=== PATIENT | female | born 1985 | race African-American/Black ===

== ENCOUNTER 2021-08-08 18:59 | Emergency (ER) | payer OTHER, SELFPAY ==
[2021-08-08 21:57] VITALS: BP 131/82; PULSE 74; RESP 16; TEMP 36.9; O2SAT 99; BMI 28.8
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
[2021-08-08] MEDS: Ibuprofen 600 MG TABLET PO (23:46)
[2021-08-08] MEDS: Cyclobenzaprine HCl 10 MG TABLET PO (23:46)
== END 2021-08-08 23:53 | disposition home or self-care (01) ==
PROVIDERS: Emergency Provider Emergency Medicine; PCP Internal Medicine
DX: S46.912A Strain of unspecified muscle, fascia and tendon at shoulder and upper arm level, left arm, initial encounter (principal); M25.512 Pain in left shoulder; V43.52XA Car driver injured in collision with other type car in traffic accident, initial encounter; Y93.9 Activity, unspecified; Y92.410 Unspecified street and highway as the place of occurrence of the external cause; Y99.9 Unspecified external cause status; Z79.899 Other long term (current) drug therapy
CPT/HCPCS: 99283; 99284

== ENCOUNTER 2021-09-11 18:01 | Emergency (ER) | payer OTHER, SELFPAY ==
--- NOTE | ~2021-09-11 | XR_ITS ---
EXAMINATION: XR CHEST CLINICAL INFORMATION: Cough COMPARISON: 10/30/2008, report only TECHNIQUE: Frontal view of the chest was obtained. FINDINGS: No significant abnormality is noted involving the heart, lungs, mediastinum, bony thorax or soft tissues. XR/XR chest 1V IMPRESSION: Unremarkable examination.
[2021-09-11 18:14] VITALS: BP 106/71; PULSE 117; RESP 18; TEMP 37.2; O2SAT 98; BMI 28.9
[2021-09-11 18:40] LABS: COVID-19 Test Negative (Negative); IDNOW Serial# 16C4AD1C
== END 2021-09-11 21:20 | disposition left against medical advice (07) ==
LOC: HO.ED 21:12
PROVIDERS: Emergency Provider Emergency Medicine; PCP Internal Medicine
DX: R05.9 Cough, unspecified (principal); R07.9 Chest pain, unspecified; R11.0 Nausea; Z20.822 Contact with and (suspected) exposure to COVID-19
CPT/HCPCS: 71045; 87635; 99283

== ENCOUNTER 2021-09-28 05:28 | Emergency (ER) | payer OTHER, SELFPAY ==
--- NOTE | ~2021-09-28 | US_ITS ---
EXAMINATION: US ABDOMEN LIMITED CLINICAL INFORMATION: Right upper quadrant pain. COMPARISON: None TECHNIQUE: Real-time imaging of the right upper quadrant abdominal viscera. FINDINGS: PANCREAS: Visualized portions unremarkable. LIVER: Unremarkable. GALLBLADDER: Mildly distended with multiple polyps. A floor representative follow-up along the superficial wall measures up to 0.5 cm. Probable mild dependent sludge and gallstones. No significant mural thickening or pericholecystic fluid. COMMON BILE DUCT: Normal in caliber measuring 0.4 cm in diameter. No intraluminal abnormality. RIGHT KIDNEY: 11.0 cm. Unremarkable. FREE FLUID: None. US/US abdomen limited IMPRESSION: 1. Probable multiple gallbladder polyps measuring up to 0.5 cm as well as intraluminal sludge and small gallstones. No evidence for acute cholecystitis. Given the multiple abnormalities, a short-term repeat right upper quadrant ultrasound should be considered in 6 months or sooner if clinically indicated.
[2021-09-28 05:34] VITALS: BP 117/83; PULSE 102; RESP 16; TEMP 36.8; O2SAT 98; BMI 28.3
[2021-09-28 05:49] LABS: Eosinophils Percent Auto 0.6 % (0-4); Hematocrit 37.1 % (37.0-47.0); Hemoglobin 12.6 g/dl (12.0-16.0); Imm Gran Abs Auto 0.01 X10*3/uL (0.00-0.03); Imm Gran Pct Auto 0.3 % (0.0-0.4); Lymphocytes Absolute Auto 0.6 X10*3/uL (1.2-4.9); Lymphocytes Percent Auto 16.2 % (20-40); MANUAL DIFF FLAG NO; Mean Corpuscular Hemoglobin 30.1 pg (27.0-33.0); Mean Corpuscular Volume 88.5 fL (80.0-98.0); Mean Platelet Volume 9.3 fL (9.4-12.3); Monocytes Absolute Auto 0.3 X10*3/uL (0.1-1.2); Monocytes Percent Auto 7.5 % (2-11); Neutrophils Absolute Auto 2.6 x10*3/uL (2.0-8.3); Neutrophils Percent Auto 75.4 % (45-73); Platelet Count 225 X10*3/uL (160-400); Red Blood Count 4.19 X10*6/uL (4.20-5.50); Red Cell Distribution Width 12.5 % (11.0-16.0); White Blood Count 3.5 X10*3/uL (4.8-10.8)
[2021-09-28 06:06] LABS: IDNOW Serial# 9DB6401D; Influenza A Negative (Negative); Influenza B2 Negative (Negative)
[2021-09-28 06:07] LABS: COVID-19 Test Negative (Negative); IDNOW Serial# 16C4AD1C
[2021-09-28 06:09] LABS: Alanine Aminotransferase 46 U/L (0-31); Alkaline Phosphatase 84 U/L (39-117); Anion Gap 14 (12-20); Aspartate Amino Transferase 45 U/L (5-31); Bilirubin Direct 0.3 mg/dL (0.0-0.5); Bilirubin Total 0.7 mg/dL (0.0-1.0); Blood Urea Nitrogen 13 mg/dL (9-16); Calcium 8.8 mg/dL (8.4-10.2); Carbon Dioxide 24 mmol/L (22-29); Chloride 104 mmol/L (96-108); Estimated Glomerular Filt Rate > 60; Glucose Random 109 mg/dL (60-115); Lipase 18 U/L (8-78); Potassium 3.7 mmol/L (3.3-5.1); Sodium 138 mmol/L (135-145); Total Protein 7.8 g/dL (6.5-8.0)
[2021-09-28 06:47] VITALS: BP 106/70; PULSE 85; RESP 14; TEMP 37.2; O2SAT 97
--- NOTE | 2021-09-28 07:29 | ED_ITS ---
HPI - Nausea/Vomiting/Diarrhea General Chief complaint: Nausea/Vomiting/Diarrhea Stated complaint: dehydrated, weakness, n/v/d, dry heaving Time Seen by Provider: 09/28/21 07:29 Source: patient Mode of arrival: ambulatory Limitations: no limitations History of Present Illness MD elicited complaint: nausea and vomiting Pertinent past history: other ( stomach issues ) Onset (ago): week(s) (1) Description of vomiting: food contents and watery Description of diarrhea: watery Associated nausea: Yes Associated abdominal pain: No Location of pain: none Radiation: diffuse Severity: moderate Quality: aching Exacerbating factors: eating Relieving factors: none Associated symptoms: headaches, loss of appetite, malaise and nausea/vomiting Related Data Previous Rx's Medication Instructions Recorded cyclobenzaprine 10 mg tablet 10 mg PO TID PRN muscle spasm #15 08/08/21 tabs ibuprofen 600 mg tablet 600 mg PO Q6H PRN pain #30 tabs 08/08/21 omeprazole 20 mg capsule,delayed 20 mg PO DAILY 14 days #14 caps 09/28/21 release ondansetron 4 mg disintegrating 4 mg PO Q8H PRN nausea and 09/28/21 tablet vomiting #20 tabs Allergies Allergy/AdvReac Type Severity Reaction Status Date / Time acetaminophen [From Vicodin] AdvReac Intermediate Vomiting Verified 09/11/21 18:14 hydrocodone [From Vicodin] AdvReac Intermediate Vomiting Verified 09/11/21 18:14 sertraline [From Zoloft] AdvReac Intermediate Vomiting Verified 09/11/21 18:14 Review of Systems Review of Systems: Constitutional : No Weight loss, No Fever, No Chills ENT/Mouth : No sore throat, No Rhinorrhea Eyes: No Swelling, No Redness Cardiovascular : No Chest Pain, No SOB, NoEdema Respiratory : No Cough, No Sputum, No Wheezing Gastrointestinal : Positive Nausea, Positive Vomiting, no Diarrhea, no abdominal Pain, No Hematochezia, No Melena Genitourinary : No Dysuria, No Urinary Frequency, No Hematuria, No Urgency Musculoskeletal : No joint pain, No Myalgias, No Joint Swelling Skin : No Skin Lesions, No rash Neuro : pos Weakness, No Numbness, No Dizziness, pos Headache Psych : No Anxiety/Panic, No Depression Heme/Lymph: No Bruising, No Lymphadenopathy Endocrine : No Polyuria, No Polydipsia All other systems reviewed and are negative. Gastrointestinal: Gastrointestinal: Reports nausea PMFSH Past Medical History Attestation statement: The following information was validated with the patient. Medical History (Updated 09/28/21 @ 11:05 by Joan Jones DO) Hypothyroidism Surgical History (Updated 09/28/21 @ 08:05 by Joan Jones DO) H/O section Social History Social History Alcohol intake: never Patient Tobacco Use Status: Never used Tobacco Use of substances other than those prescribed or required for medical reasons: No Advance Directives: No Patient : No Physical Exam Vital Signs: Vital Signs: Last Vital Signs Temp 99.0 F 09/28/21 06:47 Pulse 85 09/28/21 06:47 Resp 14 09/28/21 06:47 BP 106/70 09/28/21 06:47 Pulse Ox 97 09/28/21 06:47 O2 Del Method 09/28/21 06:47 BMI result Body Mass Index 28.3 Appearance: Alert. Oriented X3. No acute distress. Eyes: Pupils equal, round and reactive to light. ENT: Pharynx normal. Neck: Normal inspection. Neck supple. CVS: Normal heart rate and rhythm. Pulses normal. Respiratory: No respiratory distress. Breath sounds normal. Abdomen: Soft and mild epigastric ttp no rebound or guarding Skin: Skin warm and dry. Normal skin color. Normal skin turgor. Extremities: No lower extremity edema. No calf ttp Neuro: Oriented X 3. No motor deficit. No sensory deficit. Course Course Course Narrative: no signs of cholecystitis, bili normal no WBC count able to tolerate PO no RUQ pain will place on low fat diet and refer to surgery as outpatient MDM - Nausea/Vomiting/Diarrhea MDM Narrative Medical decision making narrative: 36 yo female with no sig PMH here with c/o vomiting for 1 week everytime she eats denies known exposures or sick contacts, does not smoke THC. at this time will need labs, UPT, UA, US of GB to r/o cholecystitis. IVF and IV medications to treatment nausea and vomiting. Dispo per results and findings. Lab Data Result diagrams: 09/28/21 05:45 09/28/21 05:45 Labs: Lab Results 09/28/21 09/28/2109/28/22 Range/Units 05:45 05:45 05:45 WBC 3.5 L (4.8-10.8) X10*3/uL RBC 4.19 L (4.20-5.50) X10*6/uL Hgb 12.6 (12.0-16.0) g/dl Hct 37.1 (37.0-47.0) % MCV 88.5 (80.0-98.0) fL MCH 30.1 (27.0-33.0) pg MCHC 34.0 (31.0-35.0) g/dl RDW 12.5 (11.0-16.0) % Plt Count 225 (160-400) X10*3/uL MPV 9.3 L (9.4-12.3) fL Immature Gran % (Auto) 0.3 (0.0-0.4) % Neut % (Auto) 75.4 H (45-73) % Lymph % (Auto) 16.2 L (20-40) % [place] % (Auto) 7.5 (2-11) % Eos % (Auto) 0.6 (0-4) % Baso % (Auto) 0.0 (0-2) % Lymph # (Auto) 0.6 L (1.2-4.9) X10*3/uL [place] # (Auto) 0.3 (0.1-1.2) X10*3/uL Eos # (Auto) 0.0 (0.0-0.4) X10*3/uL Baso # (Auto) 0.0 (0.0-0.2) X10*3/uL Abs Immat Gran (auto) 0.01 (0.00-0.03) X10*3/uL Absolute Neuts (auto) 2.6 (2.0-8.3) x10*3/uL Absolute Nucleated RBC 0.000 (0.0-0.012) X10*3/uL Nucleated RBC % (auto) 0.0 (0.0-0.2) /100WBC Sodium 138 (135-145) mmol/L Potassium 3.7 (3.3-5.1) mmol/L Chloride 104 (96-108) mmol/L Carbon Dioxide 24 (22-29) mmol/L Anion Gap 14 (12-20) BUN 13 (9-16) mg/dL Creatinine 0.74 (0.5-1.4) mg/dL Estim Creat Clear Calc 104.0 Estimated GFR > 60 Random Glucose 109 (60-115) mg/dL Calcium 8.8 (8.4-10.2) mg/dL Total Bilirubin 0.7 (0.0-1.0) mg/dL Direct Bilirubin 0.3 (0.0-0.5) mg/dL AST 45 H (5-31) U/L ALT 46 H (0-31) U/L Alkaline Phosphatase 84 (39-117) U/L Total Protein 7.8 (6.5-8.0) g/dL Albumin 4.0 (3.5-5.0) g/dL Lipase 18 (8-78) U/L Urine Color Urine Appearance Urine pH (5.0-8.0) Ur Specific [place] (1.005-1.025) Urine Protein (NEG-TRACE) MG/DL Urine Glucose (UA) (NEG) MG/DL Urine Ketones (NEG) MG/DL Urine Blood (NEG) Urine Nitrite (NEG) Ur Leukocyte Esterase (NEG) Urine Test (NEGATIVE) Urine Opiates Screen (Not Detect) Urine Fentanyl Screen (Not Detect) Ur Barbiturates Screen (Not Detect) Ur Phencyclidine Scrn (Not Detect) Ur Amphetamines Screen (Not Detect) U Benzodiazepines Scrn (Not Detect) Urine Cocaine Screen (Not Detect) U Marijuana (THC) Screen (Not Detect) COVID-19 (YORDAN) (Negative) COVID-19 Clin Com Influenza Type A (DAI) Negative (Negative) Influenza Type B (DAI) Negative (Negative) Influenza A & B Note See Note 09/28/21 09/28/21 09/28/21 Range/Units 05:45 10:35 10:35 WBC (4.8-10.8) X10*3/uL RBC (4.20-5.50) X10*6/uL Hgb (12.0-16.0) g/dl Hct (37.0-47.0) % MCV (80.0-98.0) fL MCH (27.0-33.0) pg MCHC (31.0-35.0) g/dl RDW (11.0-16.0) % Plt Count (160-400) X10*3/uL MPV (9.4-12.3) fL Immature Gran % (Auto) (0.0-0.4) % Neut % (Auto) (45-73) % Lymph % (Auto) (20-40) % [place] % (Auto) (2-11) % Eos % (Auto) (0-4) % Baso % (Auto) (0-2) % Lymph # (Auto) (1.2-4.9) X10*3/uL [place] # (Auto) (0.1-1.2) X10*3/uL Eos # (Auto) (0.0-0.4) X10*3/uL Baso # (Auto) (0.0-0.2) X10*3/uL Abs Immat Gran (auto) (0.00-0.03) X10*3/uL Absolute Neuts (auto) (2.0-8.3) x10*3/uL Absolute Nucleated RBC (0.0-0.012) X10*3/uL Nucleated RBC % (auto) (0.0-0.2) /100WBC Sodium (135-145) mmol/L Potassium (3.3-5.1) mmol/L Chloride (96-108) mmol/L Carbon Dioxide (22-29) mmol/L Anion Gap (12-20) BUN (9-16) mg/dL Creatinine (0.5-1.4) mg/dL Estim Creat Clear Calc Estimated GFR Random Glucose (60-115) mg/dL Calcium (8.4-10.2) mg/dL Total Bilirubin (0.0-1.0) mg/dL Direct Bilirubin (0.0-0.5) mg/dL AST (5-31) U/L ALT (0-31) U/L Alkaline Phosphatase (39-117) U/L Total Protein (6.5-8.0) g/dL Albumin (3.5-5.0) g/dL Lipase (8-78) U/L Urine Color YELLOW Urine Appearance HAZY Urine pH 7.0 (5.0-8.0) Ur Specific [place] 1.010 (1.005-1.025) Urine Protein TRACE (NEG-TRACE) MG/DL Urine Glucose (UA) NEG (NEG) MG/DL Urine Ketones 40 (NEG) MG/DL Urine Blood NEG (NEG) Urine Nitrite NEG (NEG) Ur Leukocyte Esterase NEG (NEG) Urine Test NEGATIVE (NEGATIVE) Urine Opiates Screen (Not Detect) Urine Fentanyl Screen (Not Detect) Ur Barbiturates Screen (Not Detect) Ur Phencyclidine Scrn (Not Detect) Ur Amphetamines Screen (Not Detect) U Benzodiazepines Scrn (Not Detect) Urine Cocaine Screen (Not Detect) U Marijuana (THC) Screen (Not Detect) COVID-19 (YORDAN) Negative (Negative) COVID-19 Clin Com See Note Influenza Type A (DAI) (Negative) Influenza Type B (DAI) (Negative) Influenza A & B Note 09/28/21 Range/Units 10:35 WBC (4.8-10.8) X10*3/uL RBC (4.20-5.50) X10*6/uL Hgb (12.0-16.0) g/dl Hct (37.0-47.0) % MCV (80.0-98.0) fL MCH (27.0-33.0) pg MCHC (31.0-35.0) g/dl RDW (11.0-16.0) % Plt Count (160-400) X10*3/uL MPV (9.4-12.3) fL Immature Gran % (Auto) (0.0-0.4) % Neut % (Auto) (45-73) % Lymph % (Auto) (20-40) % [place] % (Auto) (2-11) % Eos % (Auto) (0-4) % Baso % (Auto) (0-2) % Lymph # (Auto) (1.2-4.9) X10*3/uL [place] # (Auto) (0.1-1.2) X10*3/uL Eos # (Auto) (0.0-0.4) X10*3/uL Baso # (Auto) (0.0-0.2) X10*3/uL Abs Immat Gran (auto) (0.00-0.03) X10*3/uL Absolute Neuts (auto) (2.0-8.3) x10*3/uL Absolute Nucleated RBC (0.0-0.012) X10*3/uL Nucleated RBC % (auto) (0.0-0.2) /100WBC Sodium (135-145) mmol/L Potassium (3.3-5.1) mmol/L Chloride (96-108) mmol/L Carbon Dioxide (22-29) mmol/L Anion Gap (12-20) BUN (9-16) mg/dL Creatinine (0.5-1.4) mg/dL Estim Creat Clear Calc Estimated GFR Random Glucose (60-115) mg/dL Calcium (8.4-10.2) mg/dL Total Bilirubin (0.0-1.0) mg/dL Direct Bilirubin (0.0-0.5) mg/dL AST (5-31) U/L ALT (0-31) U/L Alkaline Phosphatase (39-117) U/L Total Protein (6.5-8.0) g/dL Albumin (3.5-5.0) g/dL Lipase (8-78) U/L Urine Color Urine Appearance Urine pH (5.0-8.0) Ur Specific [place] (1.005-1.025) Urine Protein (NEG-TRACE) MG/DL Urine Glucose (UA) (NEG) MG/DL Urine Ketones (NEG) MG/DL Urine Blood (NEG) Urine Nitrite (NEG) Ur Leukocyte Esterase (NEG) Urine Test (NEGATIVE) Urine Opiates Screen Not Detected (Not Detect) Urine Fentanyl Screen Not Detected (Not Detect) Ur Barbiturates Screen Not Detected (Not Detect) Ur Phencyclidine Scrn Not Detected (Not Detect) Ur Amphetamines Screen Not Detected (Not Detect) U Benzodiazepines Scrn Not Detected (Not Detect) Urine Cocaine Screen Not Detected (Not Detect) U Marijuana (THC) Screen POSITIVE H (Not Detect) COVID-19 (YORDAN) (Negative) COVID-19 Clin Com Influenza Type A (DAI) (Negative) Influenza Type B (DAI) (Negative) Influenza A & B Note Discharge Plan Discharge Clinical Impression: Vomiting Patient Disposition: Home, Self-Care Instructions: Gallstones (ED), Low Fat Diet (ED), Acute Nausea and Vomiting (ED) Additional Instructions: return to ED for any worsening symptoms or concerns FOLLOW UP AND CALL SURGERY FOR APPOINTMENT IN NEXT TWO WEEKS LOW FAT DIET - NO GOOD FATS, NO FAST FOOD, NO GREASY FOOD 1. Probable multiple gallbladder polyps measuring up to 0.5 cm as well as intraluminal sludge and small gallstones. No evidence for acute cholecystitis. Given the multiple abnormalities, a short-term repeat right upper quadrant ultrasound should be considered in 6 months or sooner if clinically indicated. Prescriptions: New ondansetron 4 mg tablet,disintegrating 4 mg PO Q8H PRN (Reason: nausea and vomiting) Qty: 20 0RF omeprazole 20 mg capsule,delayed release(DR/EC) 20 mg PO DAILY 14 Days Qty: 14 0RF No Action ibuprofen 600 mg tablet 600 mg PO Q6H PRN (Reason: pain) Qty: 30 0RF cyclobenzaprine 10 mg tablet 10 mg PO TID PRN (Reason: muscle spasm) Qty: 15 0RF Referrals: Jose Antonio Borrero MD [Physician] - 5 days Stand Alone Forms: Work/School Release
[2021-09-28] MEDS: Lactated Ringers 1,000 ML 999 ML IV (08:41)
[2021-09-28] MEDS: diphenhydrAMINE HCL 50 MG/ML VIAL 25 MG IVPUSH (08:42)
[2021-09-28] MEDS: Famotidine/PF 20 MG/2 ML VIAL IVPUSH (08:42)
[2021-09-28] MEDS: Metoclopramide HCl 10 MG/2 ML VIAL IVPUSH (08:42)
--- NOTE | 2021-09-28 08:49 | PC.NURSE ---
Pt A&Ox4, LCA, abd soft, TTP in LUQ only at this time. Medicated as per MAR orders, awaiting US results at this time. Will continue to monitor.
[2021-09-28 10:50] LABS: Appearance Urine HAZY; Color Urine YELLOW; Glucose Urine UA NEG (NEG); Leukocyte Esterase Urine NEG (NEG); Nitrite Urine NEG (NEG); Urine Blood NEG (NEG); Urine Ketones 40 MG/DL (NEG); Urine Protein TRACE MG/DL (NEG-TRACE)
[2021-09-28 10:52] LABS: UPreg QC Valid YES; Urine Pregnancy NEGATIVE (NEGATIVE)
[2021-09-28 10:55] LABS: Amphetamine Screen Urine Not Detected (Not Detect); Barbiturates, Urine Not Detected (Not Detect); Benzodiazepines Screen Urine Not Detected (Not Detect); Cannabinoid Screen Urine POSITIVE (Not Detect); Cocaine Screen Urine Not Detected (Not Detect); Fentanyl, urine Not Detected (Not Detect); Opiate Screen Urine Not Detected (Not Detect); Phencyclidine Screen Urine Not Detected (Not Detect)
== END 2021-09-28 11:44 | disposition home or self-care (01) ==
PROVIDERS: Emergency Provider Emergency Medicine; PCP Internal Medicine
DX: E86.0 Dehydration (principal); R51.9 Headache, unspecified; R11.10 Vomiting, unspecified; Z20.822 Contact with and (suspected) exposure to COVID-19; Z79.899 Other long term (current) drug therapy
CPT/HCPCS: 76705; 80053; 80307; 81003; 81025; 82248; 83690; 85025; 87502; 87635; 96361; 96374; 96375; 99284; J1200; J2765

== ENCOUNTER → 2021-10-03 14:20 | Outpatient (BNVA) | payer OTHER, SELFPAY | PROVIDERS: PCP Internal Medicine; Visit Provider Surgery | DX: K80.20 Calculus of gallbladder without cholecystitis without obstruction (principal) | CPT/HCPCS: 99202 ==

== ENCOUNTER → 2022-02-02 09:00 | Outpatient (BNVA) | payer OTHER, SELFPAY | PROVIDERS: PCP Internal Medicine; Visit Provider Surgery | DX: K80.20 Calculus of gallbladder without cholecystitis without obstruction (principal) | CPT/HCPCS: 99212 ==

== ENCOUNTER 2022-02-21 08:22 | Outpatient (REF) | payer OTHER, SELFPAY ==
--- NOTE | ~2022-02-21 | US_ITS ---
EXAMINATION: US ABDOMEN LIMITED CLINICAL INFORMATION: Calculus of gallbladder without cholecystitis without obstruction. COMPARISON: Limited abdominal ultrasound 09/28/2021. TECHNIQUE: Real-time imaging of the right upper quadrant abdominal viscera. FINDINGS: PANCREAS: Normal. LIVER: The liver is normal in size. The liver contour is normal. No focal hepatic lesion. There is no intrahepatic biliary duct dilatation seen. GALLBLADDER: 4 mm gallbladder wall polyp on the previously 5 mm. The gallbladder is physiologically distended. Mobile gallstones are present. No evidence of gallbladder wall thickening or pericholecystic fluid. COMMON BILE DUCT: Normal in caliber measuring 0.3 cm in diameter. RIGHT KIDNEY: Normal. No hydronephrosis. No renal calculi or focal parenchymal lesions. The kidney measures 10.9 cm in maximum dimension. FREE FLUID: None. US/US abdomen limited IMPRESSION: Cholelithiasis without evidence of acute cholecystitis. A gallbladder polyp measuring 4 mm minimally decreased from prior. If patient has no risk factors for gallbladder malignancy or symptoms attributable to the gallbladder, follow-up recommendations are repeat ultrasound at one, 3, and 5 years from the date of original exam documenting the findings.
== END 2022-02-21 08:23 | disposition home or self-care (01) ==
LOC: HO.HMGCX 08:22
PROVIDERS: PCP Internal Medicine; Visit Provider Surgery
DX: K80.20 Calculus of gallbladder without cholecystitis without obstruction (principal)
CPT/HCPCS: 76705

== ENCOUNTER → 2022-03-30 10:23 | Outpatient (BNVA) | payer OTHER, SELFPAY | PROVIDERS: PCP Internal Medicine; Visit Provider Physician Assistant Surgical | DX: K82.4 Cholesterolosis of gallbladder (principal) | CPT/HCPCS: 99212 ==

== ENCOUNTER 2022-06-03 04:08 | Emergency (ER) | payer OTHER, SELFPAY ==
[2022-06-03 04:16] VITALS: BP 114/72; BP 122/80; PULSE 60; PULSE 89; RESP 15; TEMP 36.6; O2SAT 98; O2SAT 99; BMI 28.3
--- NOTE | 2022-06-03 04:22 | ECG_ITS ---
Test Reason : CHEST PAIN Blood Pressure : / mmHG Vent. Rate : 063 BPM Atrial Rate : 063 BPM P-R Int : 158 ms QRS Dur : 092 ms QT Int : 414 ms P-R-T Axes : 007 031 019 degrees QTc Int : 423 ms Artifact in tracing Normal sinus rhythm Normal ECG When compared with ECG of 14-AUG-2009 15:00, Vent. rate has decreased BY 46 BPM Referred By: Generic ED Physician Electronically Signed By:ROGELIO ROBISON
[2022-06-03 04:42] LABS: MANUAL DIFF FLAG NO
[2022-06-03 04:44] LABS: Basophils Percent Auto 0.4 % (0-2); Eosinophils Absolute Auto 0.1 X10*3/uL (0.0-0.4); Eosinophils Percent Auto 1.7 % (0-4); Hemoglobin 13.5 g/dl (12.0-16.0); Imm Gran Abs Auto 0.03 X10*3/uL (0.00-0.03); Imm Gran Pct Auto 0.4 % (0.0-0.4); Lymphocytes Absolute Auto 1.5 X10*3/uL (1.2-4.9); Lymphocytes Percent Auto 21.8 % (20-40); Mean Corpuscular HGB Conc 33.8 g/dl (31.0-35.0); Mean Corpuscular Hemoglobin 30.8 pg (27.0-33.0); Mean Corpuscular Volume 91.1 fL (80.0-98.0); Mean Platelet Volume 9.5 fL (9.4-12.3); Monocytes Absolute Auto 0.4 X10*3/uL (0.1-1.2); Monocytes Percent Auto 5.4 % (2-11); Neutrophils Absolute Auto 4.8 x10*3/uL (2.0-8.3); Neutrophils Percent Auto 70.3 % (45-73); Platelet Count 344 X10*3/uL (160-400); Red Blood Count 4.39 X10*6/uL (4.20-5.50); Red Cell Distribution Width 12.1 % (11.0-16.0); White Blood Count 6.9 X10*3/uL (4.8-10.8)
--- NOTE | 2022-06-03 05:03 | PC.NURSE ---
Pt aox3. Reports upper abd pain that radiates to the chest area. 20G IV line established on left hand. Labs drawn and sent. Lab called for a recollect. Pt refused to have blood work drawn at this time. Pt actively dry heaving. Pt declined Zofran at this time and reports having an allergic reaction to Zofran. aware.
--- NOTE | 2022-06-03 05:57 | ED_ITS ---
HPI - Abdominal Pain General Chief Complaint: Abdominal Pain Stated Complaint: abdominal pain n/v Time Seen by Provider: 06/03/22 05:50 Source: patient Mode of arrival: ambulatory Limitations: no limitations History of Present Illness HPI narrative: Patient comes to the emergency room complaining of abdominal pain. Patient states that the pain radiates up her chest. Patient ate fried food around 18:30 last night and since then her pain has been gradually getting worse and having significant episodes of vomiting. Patient states that EMS gave her 324 mg of aspirin prior to arrival. At home, patient has been trying times without any significant relief. Patient states that she has history of gallbladder polyps and stones. At this time, surgery is not planned, patient is getting ultrasounds every 3 months approximately to monitor the condition Related Data Home Medications Medication Instructions Recorded Confirmed levothyroxine 100 mcg tablet 100 mcg PO DAILY 02/02/22 Previous Rx's Medication Instructions Recorded ibuprofen 600 mg tablet 600 mg PO Q6H PRN pain #30 tabs 08/08/21 omeprazole 20 mg capsule,delayed 20 mg PO DAILY 14 days #14 caps 09/28/21 release ondansetron 4 mg disintegrating 4 mg PO Q8H PRN nausea and 09/28/21 tablet vomiting #20 tabs Allergies Allergy/AdvReac Type Severity Reaction Status Date / Time acetaminophen [From Vicodin] AdvReac Intermediate Vomiting Verified 03/30/22 10:31 hydrocodone [From Vicodin] AdvReac Intermediate Vomiting Verified 03/30/22 10:31 sertraline [From Zoloft] AdvReac Intermediate Vomiting Verified 03/30/22 10:31 Review of Systems Review of Systems Constitutional : No Weight loss, No Fever, No Chills, No Night Sweats, No F atigue, No Malaise ENT/Mouth : No Hearing loss, No Ear Pain, No Nasal Congestion, No Sinus Pain, No Hoarseness, No sore throat, No Rhinorrhea, No Swallowing Difficulty Eyes: No Eye Pain, No Swelling, No Redness, No Foreign Body, No Discharge, No Vision Changes Cardiovascular : No Chest Pain, No SOB, No Dyspnea on Exertion, No Orthopnea, No Edema, No Palpitations Respiratory : No Cough, No Sputum, No Wheezing, No Smoke Exposure, No Dyspnea Gastrointestinal : Complaining of nausea and vomiting, no constipation, no diarrhea, complaining of epigastric burning pain radiating up the chest. Genitourinary : no irregular bleeding, No Dysuria, No Urinary Frequency, No Hematuria, No Urinary Incontinence, No Urgency, No Flank Pain, No Urinary Flow Changes, No Hesitancy Musculoskeletal : No joint pain, No Myalgias, No Joint Swelling Skin : No Skin Lesions, No rash Neuro : No Weakness, No Numbness, No Paresthesias, No Loss of Consciousness, No Dizziness, No Headache Psych : No Anxiety/Panic, No Depression, No SI/HI/AH/VH, No Social Issues, Heme/Lymph: No Bruising, No Bleeding,No Lymphadenopathy Endocrine : No Polyuria, No Polydipsia, No Temperature Intolerance [facility] Past Medical History Medical History (Updated 06/03/22 @ 06:04 by Lori Keen MD) Cyclical vomiting Hypothyroidism Surgical History H/O section Social History Social History Alcohol intake: never Patient Tobacco Use Status: Never used Tobacco Advance Directives: No Advance Directives Information Provided: No Physical Exam ED Vital Signs: Vital Signs - 24 hr 06/03/22 04:16 Temperature 97.8 F Pulse Rate 60 Respiratory Rate 15 Blood Pressure 114/72 Pulse Oximetry 98 Oxygen Delivery Method Room Air BMI result Body Mass Index 28.3 Const Other: Appearance: Alert. Oriented X3. Actively vomiting Eyes: Pupils equal, round and reactive to light. ENT: Pharynx normal. Neck: Normal inspection. Neck supple. No lymph nodes noted. No crepitus CVS: Normal heart rate and rhythm. Pulses normal. Normal S1 and S2 Respiratory: No respiratory distress. Breath sounds normal. No Wheezing. No rales Abdomen: Soft and nontender. No rigidity. No distention. Negative Shelton sign Skin: Skin warm and dry. Normal skin color. Normal skin turgor. Extremities: No lower extremity edema. No Lacerations. No Rash Neuro: Oriented X 3. No motor deficit. No sensory deficit. Moving all extremities. No slurred speech. CN 2 through 12 grossly intact Psych: calm, cooperative Course Course Course Narrative: -patient's hematology unremarkable. -chemistry pending. Chemistry 1. Hemolyzed, initially patient declined to have her blood drawn again. Eventually, patient accepted to have blood drawn. -CT scan pending Medical Decision Making Medical Decision Making MDM Narrative: -I was informed by the patient's nurse that the 2nd set of labs hemolyzed. Patient got angry, pulled her IV out, and walked up. Patient did not wait for her abdominal CT scan or ultrasound Lab Data 06/03/22 04:37 06/03/22 04:37 Labs: Lab Results 06/03/22 Range/Units 04:37 WBC 6.9 (4.8-10.8) X10*3/uL RBC 4.39 (4.20-5.50) X10*6/uL Hgb 13.5 (12.0-16.0) g/dl Hct 40.0 (37.0-47.0) % MCV 91.1 (80.0-98.0) fL MCH 30.8 (27.0-33.0) pg MCHC 33.8 (31.0-35.0) g/dl RDW 12.1 (11.0-16.0) % Plt Count 344 D (160-400) X10*3/uL MPV 9.5 (9.4-12.3) fL Immature Gran % (Auto) 0.4 (0.0-0.4) % Neut % (Auto) 70.3 (45-73) % Lymph % (Auto) 21.8 (20-40) % [place] % (Auto) 5.4 (2-11) % Eos % (Auto) 1.7 (0-4) % Baso % (Auto) 0.4 (0-2) % Lymph # (Auto) 1.5 (1.2-4.9) X10*3/uL [place] # (Auto) 0.4 (0.1-1.2) X10*3/uL Eos # (Auto) 0.1 (0.0-0.4) X10*3/uL Baso # (Auto) 0.0 (0.0-0.2) X10*3/uL Abs Immat Gran (auto) 0.03 (0.00-0.03) X10*3/uL Absolute Neuts (auto) 4.8 (2.0-8.3) x10*3/uL Absolute Nucleated RBC 0.000 (0.0-0.012) X10*3/uL Nucleated RBC % (auto) 0.0 (0.0-0.2) /100WBC Medications Administered Generic Name Dose Route Start Last Admin Trade Name Roman PRN Reason Stop Dose Admin Sodium Chloride 1,000 mls @ 999 mls/hr 06/03/22 05:59 06/03/22 06:13 Ns IVCONT 06/03/22 06:59 999 mls/hr .Q1H1M ONE Administration Discontinued Medications Generic Name Dose Route Start Last Admin Trade Name Roman PRN Reason Stop Dose Admin Ondansetron HCl 4 mg 06/03/22 04:58 06/03/22 05:03 Ondansetron Odt 4 Mg Tab.Rapdis SUBLINGUAL 06/03/22 04:59 Not Given ONCE ONE Prochlorperazine Edisylate 10 mg 06/03/22 05:59 06/03/22 06:13 Prochlorperazine Edisylate 10 Mg/2 Ml Vial IVPUSH 06/03/22 06:00 10 mg ONCE ONE Administration Discharge Plan Discharge Clinical Impression: Cyclical vomiting, Abdominal pain Patient Disposition: Elopement Prescriptions: No Action ibuprofen 600 mg tablet 600 mg PO Q6H PRN (Reason: pain) Qty: 30 0RF ondansetron 4 mg tablet,disintegrating 4 mg PO Q8H PRN (Reason: nausea and vomiting) Qty: 20 0RF omeprazole 20 mg capsule,delayed release(DR/EC) 20 mg PO DAILY 14 Days Qty: 14 0RF levothyroxine 100 mcg tablet 100 mcg PO DAILY
[2022-06-03] MEDS: Prochlorperazine Edisylate 10 MG/2 ML VIAL IVPUSH (06:13)
[2022-06-03] MEDS: 0.9 % Sodium Chloride 1,000 ML 999 ML IVCONT (06:13)
== END 2022-06-03 06:53 | disposition left against medical advice (07) ==
PROVIDERS: Emergency Provider Emergency Medicine; PCP Internal Medicine
DX: R10.9 Unspecified abdominal pain (principal); R11.15 Cyclical vomiting syndrome unrelated to migraine; Z79.899 Other long term (current) drug therapy
CPT/HCPCS: 36415; 85025; 93005; 96374; 99284

== ENCOUNTER 2023-12-31 10:24 | Outpatient (REF) | payer OTHER, SELFPAY ==
--- NOTE | ~2023-12-31 | US_ITS ---
EXAMINATION: US ABDOMEN LIMITED CLINICAL INFORMATION: Cholesterolosis of gallbladder. COMPARISON: Limited abdominal ultrasound 02/21/2022 and 09/28/2021. TECHNIQUE: Real-time imaging of the right upper quadrant abdominal viscera. FINDINGS: PANCREAS: Normal. LIVER: Normal. The liver is normal in size. The liver contour is normal. Parenchymal echogenicity is normal. No focal hepatic lesion. There is no intrahepatic biliary duct dilatation seen. GALLBLADDER: The gallbladder is physiologically distended. Multiple mobile gallstones are present. No evidence of gallbladder wall thickening or pericholecystic fluid. Multiple mobile gallstones are present. COMMON BILE DUCT: Normal in caliber measuring 0.4 cm in diameter. RIGHT KIDNEY: Normal. No hydronephrosis. No renal calculi or focal parenchymal lesions. The kidney measures 10.9 cm in maximum dimension. FREE FLUID: None. US/US abdomen limited IMPRESSION: Persistent Cholelithiasis without evidence of acute cholecystitis. The previously reported gallbladder wall polyp is not demonstrated on the current examination. Electronically signed by: Carissa Terrazas MD 01/02/2024 07:18 AM EDT
== END 2023-12-31 10:25 | disposition home or self-care (01) ==
LOC: HO.HMGCX 10:24
PROVIDERS: PCP Surgery; Visit Provider Surgery
DX: K82.4 Cholesterolosis of gallbladder (principal)
CPT/HCPCS: 76705

== ENCOUNTER 2024-01-09 11:11 | Outpatient (AMB) | payer OTHER, SELFPAY ==
--- NOTE | 2024-01-09 11:12 | MHC.OFFVIS ---
Intake Visit Reasons: US follow-up Intake Note: This patient presents for US follow-up ( 12/31/2023). Pt c/o; reports no new complaints at this time. [employer] Required: No Accompanied by: Self / Same As Patient Allergies acetaminophen [From Vicodin] Adverse Reaction (Intermediate, Verified 01/09/24 11:12) Vomiting hydrocodone [From Vicodin] Adverse Reaction (Intermediate, Verified 01/09/24 11:12) Vomiting sertraline [From Zoloft] Adverse Reaction (Intermediate, Verified 01/09/24 11:12) Vomiting Medication List - Last Reconciled 01/09/24 by Jose Antonio Borrero MD ibuprofen 600 mg PO Q6H PRN levothyroxine 100 mcg PO DAILY omeprazole 20 mg PO DAILY 14 days ondansetron 4 mg PO Q8H PRN HPI HPI US follow-up: Details: She is here to discuss her ultrasound findings. I had scheduled her for an ultrasound which was done last week as a follow-up. There was a question of gallstones versus gallbladder polyps on her previous ultrasound. She says she feels well overall. She denies right upper quadrant pain. She does admit to occasional epigastric pain. She has good oral intake. She denies any GI complaints. PFSH Medical History Cyclical vomiting Hypothyroidism Surgical History H/O section Social History Alcohol intake: never Patient Tobacco Use Status: Never used Tobacco Review of Systems Const Denies chills and Denies fever(s) Card Denies chest pain, Denies dyspnea and Denies dyspnea on exertion Resp Denies cough, Denies dyspnea and Denies dyspnea on exertion GI Denies hematochezia and Denies change in bowel habits Denies hematuria Musc Denies back pain and Denies limited range of motion Neuro Denies focal weakness and Denies convulsions Psych Denies depression and Denies mood swings Physical Exam Const General: comfortable and no acute distress Orientation/consciousness: patient oriented x3 Eyes Other: Nonicteric Neck Neck: Yes no lymphadenopathy Resp Auscultation: clear to auscultation bilaterally Cardio Rhythm: regular rhythm GI Palpation (GI): Soft to palpation, nontender and no guarding Neuro General: patient oriented x3 Assessment & Plan Assessment & Plan (1) Gallstones: Code(s): K80.20 - Calculus of gallbladder without cholecystitis without obstruction Category: Medical Plan: Her ultrasound from last month does show multiple gallstones. I therefore explained to her the option of proceeding with cholecystectomy. I explained the technique of laparoscopic cholecystectomy and possible open cholecystectomy. I reviewed the risks including but not limited to bleeding, infections injury to other organs including bowel, liver bile duct, bile leak, blood clots, pneumonia, as well as the benefits and alternatives., She says that she does not want to proceed with cholecystectomy as this time. I did explain to her that there is a possibility of her developing cholecystitis down the line as well She says she will come back to the office once he decides to proceed with cholecystectomy. Coding Level of Care Code Est Pt Level 3 (15464) Diagnoses Gallstones K80.20
== END 2024-01-09 11:27 | disposition home or self-care (01) ==
PROVIDERS: PCP Surgery; Visit Provider Surgery
DX: K80.20 Calculus of gallbladder without cholecystitis without obstruction (principal)
CPT/HCPCS: 99213

== ENCOUNTER → 2024-01-09 11:11 | Outpatient (BNVA) | payer OTHER, SELFPAY | PROVIDERS: PCP Surgery; Visit Provider Surgery | DX: K80.20 Calculus of gallbladder without cholecystitis without obstruction (principal) | CPT/HCPCS: 99212 ==

== ENCOUNTER 2024-08-11 10:46 | Emergency (ER) | payer OTHER, SELFPAY ==
--- NOTE | ~2024-08-11 | XR_ITS ---
EXAMINATION: XR SACRUM AND COCCYX CLINICAL INFORMATION: back pain COMPARISON: None available. TECHNIQUE: 2 views of the sacrum and 2 views of the coccyx were obtained. FINDINGS: There are no fractures. No bone, joint or soft tissue abnormality is demonstrated. XR/XR sacrum coccyx min 2V IMPRESSION: Unremarkable examination. Electronically signed by: Waylon Guardado MD 08/11/2024 11:56 AM EDT
--- NOTE | ~2024-08-11 | XR_ITS ---
EXAMINATION: XR LUMBOSACRAL SPINE CLINICAL INFORMATION: back pain COMPARISON: None available. TECHNIQUE: Three views of the lumbosacral spine. FINDINGS: There is a minimal levoconvex scoliosis, possibly positional. Normal bone mineralization. There is a normal lumbar lordosis. There is no subluxation. Disc spaces are preserved at all levels. Facets are normally aligned. No significant facet arthrosis. Fractures or compression deformities. No suspicious bone lesions. No soft tissue abnormality. XR/XR lumbar spine 2-3V IMPRESSION: Essentially normal radiographs of the lumbar spine. Electronically signed by: Waylon Guardado MD 08/11/2024 11:58 AM EDT
[2024-08-11 11:25] VITALS: BP 110/80; PULSE 75; RESP 16; TEMP 36.4; O2SAT 99; BMI 27.5
--- NOTE | 2024-08-11 11:29 | ED.BACK ---
HPI - Back Pain/Injury General Chief Complaint: Back Pain/Injury Stated Complaint: lower back pain Related Data Home Medications ?Medication ?Instructions ?Recorded ?Confirmed levothyroxine 100 mcg tablet 100 mcg PO DAILY 02/02/22 01/09/24 Previous Rx's ?Medication ?Instructions ?Recorded ibuprofen 600 mg tablet 600 mg PO Q6H PRN pain #30 tabs 08/08/21 omeprazole 20 mg capsule,delayed 20 mg PO DAILY 14 days #14 caps 09/28/21 release ondansetron 4 mg disintegrating 4 mg PO Q8H PRN nausea and 09/28/21 tablet vomiting #20 tabs Allergies Allergy/AdvReac Type Severity Reaction Status Date / Time hydrocodone [From Vicodin] AdvReac Intermediate Vomiting Verified 08/11/24 11:29 sertraline [From Zoloft] AdvReac Intermediate Vomiting Verified 08/11/24 11:29 PMFSH Past Medical History Medical History Cyclical vomiting Hypothyroidism Surgical History H/O section Social History Social History Alcohol intake: never Patient Tobacco Use Status: Never used Tobacco Course Course Course Narrative: This is an RME: Additional HPI, ROS, PE not included below will be deferred to primary provider. RME assessment and note performed by: Mesha Taylor PA-C This is a 39 year old female who presents to the ER with complaints of low back pain after moving a heavy TV 2 weeks ago. Reporting pain with movement. Low back w/ no TTP overlying the l spine. No urinary or bowel incontinence. No urinary symptoms. Plan: Xrays, further ER eval needed Discharge Plan Discharge Prescriptions: No Action ibuprofen 600 mg tablet 600 mg PO Q6H PRN (Reason: pain) Qty: 30 0RF ondansetron 4 mg tablet,disintegrating 4 mg PO Q8H PRN (Reason: nausea and vomiting) Qty: 20 0RF omeprazole 20 mg capsule,delayed release(DR/EC) 20 mg PO DAILY 14 Days Qty: 14 0RF levothyroxine 100 mcg tablet 100 mcg PO DAILY Print Language: Singaporean
--- NOTE | 2024-08-11 13:09 | ED_ITS ---
HPI - General Adult General Chief complaint: Back Pain/Injury Stated complaint: lower back pain Time Seen by Provider: 08/11/24 13:02 Source: patient Mode of arrival: ambulatory Limitations: no limitations History of Present Illness ED Provider: Matthew Null HPI narrative: 39 yold female with pmh of gallstones, cyclical vomitting presents to the ED for low back pain that has been occuring for the past 2 weeks after lifting heavy tv. Patient denies any abdominal pain, nausea, vomitting, fever, chills, dysuria, hemautira, urinary/bowel incontinence, IV drug use, or immunocompromised diseases. Related Data Home Medications ?Medication ?Instructions ?Recorded ?Confirmed levothyroxine 100 mcg tablet 100 mcg PO DAILY 02/02/22 01/09/24 Previous Rx's ?Medication ?Instructions ?Recorded ibuprofen 600 mg tablet 600 mg PO Q6H PRN pain #30 tabs 08/08/21 omeprazole 20 mg capsule,delayed 20 mg PO DAILY 14 days #14 caps 09/28/21 release ondansetron 4 mg disintegrating 4 mg PO Q8H PRN nausea and 09/28/21 tablet vomiting #20 tabs cyclobenzaprine 10 mg tablet 10 mg PO TID PRN muscle spasm #21 08/11/24 tabs lidocaine 5 % topical patch 1 patch topical DAILY #15 ea 08/11/24 naproxen 500 mg tablet 500 mg PO BID PRN pain #14 tabs 08/11/24 Allergies Allergy/AdvReac Type Severity Reaction Status Date / Time hydrocodone [From Vicodin] AdvReac Intermediate Vomiting Verified 08/11/24 11:29 sertraline [From Zoloft] AdvReac Intermediate Vomiting Verified 08/11/24 11:29 Review of Systems Review of Systems: lwo back pain Yes all other systems are reviewed and are negative PMFSH Past Medical History Medical History Cyclical vomiting Hypothyroidism Surgical History H/O section Social History Social History Alcohol intake: never Patient Tobacco Use Status: Never used Tobacco Physical Exam ED Vital Signs: Vital Signs - 24 hr 08/11/24 11:25 08/11/24 14:00 Temperature 97.5 F 97.5 F Pulse Rate 75 75 Respiratory Rate 16 16 Blood Pressure 110/80 110/80 Pulse Oximetry 99 99 Oxygen Delivery Method Room Air Room Air BMI result Body Mass Index 27.5 Const General: cooperative, healthy appearing, comfortable, no acute distress, well developed, alert, awake and Physically active Orientation/consciousness: patient oriented x3 [facility] Head: Yes normal to inspection, Yes No palpable skull fracture present, Yes normocephalic and Yes atraumatic Eyes General: appearance normal, both eyes and all related structures Neck Neck: Yes normal visual inspection, Yes full ROM, Yes no lymphadenopathy, Yes no meningeal signs, Yes trachea midline, Yes supple, No anterior neck swelling and No tender Chest Chest palpation & inspection: normal inspection of the chest and normal palpation of entire chest wall Resp Effort & Inspection: normal respiratory effort and able to speak in complete sentences Auscultation: clear to auscultation bilaterally Cardio Jugular venous distension: no JVD Heart sounds: S1 normal heart sound present and S2 normal heart sound present GI Inspection: Yes normal to inspection Palpation (GI): Soft to palpation, not firm, nontender, no guarding and not rigid General: Yes no CVA tenderness Back/Spine/Pelvis Back: no CVA tenderness and back tenderness (lumbar spine tenderness) Skin General skin exam: no rashes or lesions noted, elasticity normal and turgor normal Neuro General: patient oriented x3, gait normal, tone normal, moves all extremities, Normal light touch and pain sensation, no meningeal signs, no focal motor deficits and CN's II-XI intact bilaterally Extrem General: Yes normal to inspection, Yes full ROM and Yes capillary refill normal Psych Appearance: grossly normal, well kempt and not disheveled Medical Decision Making Medical Decision Making MDM Narrative: 39 yold female presents to the ED for low back pain for the past two weeks that is worse on movement after lifting heavy TV. Patient denies any urinary/bowel incontinence, IV drug use, perineal saddle anesthesia, genitourinary symptoms, abdominal pain, nausea, vomiting, fever, or chills. Positive for sacral lumbar spine tenderness on palpation. Negative for mass erythema or rash. X-rays were normal. Patient will be discharged with pain medication muscle relaxer and lidocaine patch. Not suspecting epidural abscess, cauda equinus syndrome, osteomyelitis, kidney stones, UTI, pyelonephritis, or any other life threatening etiologies. Patient explained worrisome signs and informed to return to the ED immeiatley. Differential Diagnosis Differential Diagnoses: The differential diagnosis associated with the presentation includes (fracture, lumbar sprain, ) Admission/Observation Consideration of admission/observation: Escalation of care including admission/observation considered Independent Interpretation I performed an independent interpretation of an: Plain X-Ray Radiology Impression Discussion of test interpretation with radiology: I have reviewed the radiologist's reading. Independent Historian Clinical information obtained from an independent historian. History obtained from or confirmed by: Other (patient) Prescription Management I considered prescription management with: Pain Medication Discharge Plan Discharge Clinical Impression: Lumbar back sprain Patient Disposition: Home, Self-Care Instructions: Back Pain (ED), Lower Back Exercises (ED), Cold Compress or Soak (ED) Additional Instructions: Your back x-rays came back normal negative for any fractures. Recommend follow up with the primary care provider. If he is still having back. You may need physical therapy and possible MRI. Return to the ED immediately for any urinary/bowel incontinence, severe back pain, fever, chills, inability to walk, paralysis of lower extremities, numbness/tingling, or any other concerning symptoms. Do not take any other NSAIDS such as motrin, iburpofen, meloxicam, diclofenac, or any other NSAIDS while taking naproxen EXAMINATION: XR LUMBOSACRAL SPINE CLINICAL INFORMATION: back pain COMPARISON: None available. TECHNIQUE: Three views of the lumbosacral spine. FINDINGS: There is a minimal levoconvex scoliosis, possibly positional. Normal bone mineralization. There is a normal lumbar lordosis. There is no subluxation. Disc spaces are preserved at all levels. Facets are normally aligned. No significant facet arthrosis. Fractures or compression deformities. No suspicious bone lesions. No soft tissue abnormality. XR/XR lumbar spine 2-3V IMPRESSION: Essentially normal radiographs of the lumbar spine. Electronically signed by: Waylon Guardado MD 08/11/2024 11:58 AM EDT EXAMINATION: XR SACRUM AND COCCYX CLINICAL INFORMATION: back pain COMPARISON: None available. TECHNIQUE: 2 views of the sacrum and 2 views of the coccyx were obtained. FINDINGS: There are no fractures. No bone, joint or soft tissue abnormality is demonstrated. XR/XR sacrum coccyx min 2V IMPRESSION: Unremarkable examination. Electronically signed by: Waylon Guardado MD 08/11/2024 11:56 AM EDT Prescriptions: New lidocaine 5 % adhesive patch,medicated 1 patch topical DAILY Qty: 15 0RF Rx Instructions: leave on most painful area for up to 12 hrs cyclobenzaprine 10 mg tablet 10 mg PO TID PRN (Reason: muscle spasm) Qty: 21 0RF Rx Instructions: side effect is drowsiness. do not take at work or while driving. naproxen 500 mg tablet 500 mg PO BID PRN (Reason: pain) Qty: 14 0RF No Action ibuprofen 600 mg tablet 600 mg PO Q6H PRN (Reason: pain) Qty: 30 0RF ondansetron 4 mg tablet,disintegrating 4 mg PO Q8H PRN (Reason: nausea and vomiting) Qty: 20 0RF omeprazole 20 mg capsule,delayed release(DR/EC) 20 mg PO DAILY 14 Days Qty: 14 0RF levothyroxine 100 mcg tablet 100 mcg PO DAILY Stand Alone Forms: Work/School Release Interventions: ED Discharge Assessment Last Done: 08/11/24 14:00 Discharge Date/Time: 08/11/24 14:01 Print Language: Jamaican
[2024-08-11 14:00] VITALS: BP 110/80; PULSE 75; RESP 16; TEMP 36.4; O2SAT 99
== END 2024-08-11 14:01 | disposition home or self-care (01) ==
PROVIDERS: Emergency Provider Emergency Medicine
DX: M54.50 Low back pain, unspecified (principal); M53.3 Sacrococcygeal disorders, not elsewhere classified
CPT/HCPCS: 72100; 72220; 99282; 99283

== ENCOUNTER → 2024-08-11 11:30 | Outpatient (BNV) | payer OTHER, SELFPAY | PROVIDERS: Visit Provider Radiology Diagnostic Radiology | DX: M54.50 Low back pain, unspecified (principal) | CPT/HCPCS: 72100; 72220 ==

== ENCOUNTER 2025-02-09 08:55 | Outpatient (REF) | payer OTHER, SELFPAY ==
--- OUTSIDE RECORDS SUMMARY | 2025-02-04 10:25 | XMS_ITS | Encounter Summary ---
Author Organization [facility] Address [address] [place] [address] Care Team Providers Care Hydroelectric Mechanic Name Role Phone Pk Davis MD Primary Care Provider Encounter Details Date Type Department Care Team (Late st Contact Info) Description 02/04/2025 11:25 AM EDT Lab Draw Station - [address] [place] [address] Hypothyroidism, unspecified type Social History Tobacco Use Types Packs/Day Years Used Date Smoking Tobacco: Former Smokeless Tobacco: Never Alcohol Use Standard Drinks/Week Comments No 0 (1 standard drink = 0.6 oz pur e alcohol) Housing Instability Answer Date Recorde d Are you worried that in the next 2 months you may not have stable housing? No 08/15/2024 Food Access & Nutrition Answer Date Rec orded Do you have access to a vari ety of food including fruits and vegetables? Yes 08/15/2024 Access to Healthcare Answer Date Record ed Within the last 3 months, ho w many times did you visit the emergency department for your medical care? 1 08/15/2024 Health Literacy Answer Date Recorded How often do you need to hav e someone help you when you read instructions, pamphlets, or other written material from your doctor or pharmacy? Never 08/15/2024 Caregiver: How often do you need to have someone help you when you read instructions, pamphlets, or other written material from your doctor or pharmacy? Not on file 08/15/2024 Financial Risk Answer Date Recorded How hard is it for you to pa y for the very basics like food, housing, medical care, and air conditioning / heating? Not very hard 08/15/2024 Transportation Answer Date Recorded Has the lack of transportati on kept you from meetings, work, or from getting things needed for daily living? No Has the lack of transportati on kept you from medical appointments or from getting medications? No 08/15/2024 Social Isolation Answer Date Recorded How often do you feel lonely or isolated from th ose around you? Never 08/15/2024 Food Risk Answer Date Recorded Within the past 12 months we worried whether our food would run out before we got money to buy more. Never true 08/15/2024 Within the past 12 months th e food we bought just didn't last and we didn't have money to get more. Never true 08/15/2024 Dependent Care Answer Date Recorded Do you need help finding or paying for care for your loved ones. For example, child attendant or elderly care for an older adult? No 08/15/2024 Education Answer Date Recorded Do you think completing more education or training, like finishing a GED, going to college, or learning a trade, would be helpful for you? No 08/15/2024 Employment and Income Answer Date Recor ded During the last four weeks, have you been actively looking for work? No 08/15/2024 Living Situation Answer Date Recorded What is your living situation? Unrecognized valu e 08/15/2024 Comments Unknown Sex and Gender Information Value Date Recorded Sex Assigned at Not on file Legal Sex Female 3:01 AM EST Gender Identity Not on file Sexual Orientation Not on file documented as of this encounter Plan of Treatment Upcoming Encounters Date Type Department Care Team (Late st Contact Info) Description 05/12/2025 1:30 PM EST Office Visit Adult Medicine [address] [phone] Annmarie Napier PA [address] [place], [place] documented as of this encounter Procedures Procedure Name Priority Date/Time Associated Diagnosis Comments THYROID STIMULATING HORMONE WITH REFLEX TO FREE T4 AND FREE T3 Routine 02/04/2025 11:28 AM EDT Hypothyroidism, unspecified type FREE THYROXINE WITH REFLEX TO FREE TRIIODOTHYRONINE Routine 02/04/2025 11:28 AM EDT Hypothyroidism, unspecified type TRIIODOTHYRONINE FREE Routine 02/04/2025 11:28 AM EDT Hypothyroidism, unspecified type documented in this encounter Results * Triiodothyronine free (02/04/2025 11:28 AM EDT) T3, Free 238 230 - 420 pcg/dL LAB CHEMISTRY METHOD 02/04/2025 4:17 PM EDT [facility] Blood Venous blood specimen / Unknown Venipuncture / Unknown 02/04/2025 11:28 AM EDT 02/04/2025 11:28 AM EDT us Pk Davis MD LAB BLOOD ORDERABLES F inal Result Performing Organization Address [facility]/ZIP Co de Phone Number [facility] [address] [place] [address], [place] [phone] * Free thyroxine with reflex to free triiodothyronine (02/04/2025 11:28 AM EDT) Free T4 0.82 0.70 - 1.80 ng/dL LAB CHEMISTRY METHOD 02/04/2025 2:49 PM EDT [facility] Blood Venous blood specimen / Unknown Venipuncture / Unknown 02/04/2025 11:28 AM EDT 02/04/2025 11:28 AM EDT us Pk Davis MD LAB BLOOD ORDERABLES F inal Result Performing Organization Address City/[facility]/ZIP Co de Phone Number [facility] [address] [place] [address], [place] [phone] * (ABNORMAL) Thyroid stimulating hormone with reflex to free t4 and free t3 (02/04/2025 11:28 AM EDT) TSH 7.04(H) 0.40 - 4.00 mcIU/mL LAB CHEMISTRY METHOD 02/04/2025 2:25 PM EDT [facility] Blood Venous blood specimen / Unknown Venipuncture / Unknown 02/04/2025 11:28 AM EDT 02/04/2025 11:28 AM EDT us Pk Davis MD LAB BLOOD ORDERABLES F inal Result [facility] [address] [place] [address], documented in this encounter Visit Diagnoses Diagnosis Hypothyroidism, unspecified type documented in this encounter Additional Health Concerns Assessment Noted Time PHQ-9 Depression Total Score: 0 08/16/19 25 10:16 AM EDT documented as of this encounter Care Teams Hydroelectric Mechanic Relationship Specialty Start Date End Date Pk Davis MD [address] [place] [address] PCP - General 09/13/22 documented as of this encounter
--- NOTE | ~2025-02-09 | US_ITS ---
CLINICAL HISTORY: K82.4 - Cholesterolosis of gallbladder --- Additional Notes or Special Instructions: f u gallbladder polyps per 2021 US US abdomen limited Comparison: US/SR - US ABDOMEN LIMITED - 12/31/23 10:33 EDT Findings: The visualized pancreas, aorta, and inferior vena cava are unremarkable. The liver is normal in size, right lobe length is 14.2 cm. Normal in echogenicity, no discrete lesion is visualized in the imaged liver. No bile duct dilatation. Common duct 3 mm diameter. Physiologic distention of the gallbladder. Multiple mobile gallstones, no sludge or polyp is seen, no gallbladder wall thickening, per ultrasound worksheet, patient is tender in area of the gallbladder. Main portal vein shows antegrade flow. Right kidney normal, 11.2 cm in length. No free fluid in the right upper quadrant of the abdomen. Impression: Cholelithiasis, underdistended gallbladder and no gallbladder wall thickening, unlikely acute cholecystitis, but patient is tender in the area of the gallbladder per ultrasound worksheet, no specific documentation of sonographic Shelton's sign, interpreting radiologist is not present during the exam, please correlate clinically. This document has been electronically signed by: Ethel Lloyd MD on 02/09/2025 12:29:23
--- OUTSIDE RECORDS SUMMARY | 2025-02-09 09:35 | XMS_ITS | Clinical Summary ---
Author Organization [address] Address [address] [place] [address] [address] [address] [address] Phone Care Team Providers Care Stringer Up Soldering Machine Name Role Phone Pk Davis MD Primary Care Provider Allergies Active Allergy Reactions Criticality Noted Date Comments Duloxetine Hcl 09/17/2018 Ondansetron Hcl 09/08/2024 Medications baclofen (LIORESAL) 10 mg tablet Take 1 tablet (10 mg total) by mouth 3 (three) times a day. 270 each 5 Active cyclobenzaprin e (FLEXERIL) 10 mg tablet Take 1 tablet (10 mg total) by mouth 2 (two) times a day if needed for muscle spasms for up to 10 days. 20 tablet 5 Active ibuprofen (ADVIL,MOTRIN) 800 mg tablet TAKE 1 TABLET (800 MG TOTAL) BY MOUTH 3 TIMES A DAY NEEDED FOR MODERATE PAIN 90 tablet 5 Active levothyroxine (Synthroid) 112 mcg tablet Take 1 tablet (112 mcg total) by mouth 1 (one) time each day before breakfast. 90 each 1 5 Active levothyroxine (SYNTHROID, LEVOTHROID) 100 mcg tablet Take 1 tablet (100 mcg total) by mouth 1 (one) time each day. 90 tablet 1 5 025 Discontinued Active Problems Problem Noted Date Diagnosed Date Marijuana use 02/24/2019 Overview (03/13/2024): [facility] (02/14/19) Other cervical disc degeneration at C5-C6 level 09/19/2018 Hypothyroid 11/12/2013 Overview (03/13/2024): Heterogenous thryoid gland, slightly enlarged, consistent with Adelia's thyroiditis Over weight 04/05/2009 Encounters Date Type Department Care Team Description 02/05/2025 Telephone Adult Medicine [address] [phone] Pk Davis MD 02/05/2025 Results Follow-Up Adult [address] [phone] Pk Davis MD 02/04/2025 11:25 AM EDT Lab Draw Station [address] Hypothyroidism, unspecified type from Last 3 Months Immunizations Immunization Administration Dates Next Due H1N1 Inj Preservative Free 04/05/2009 HPV, Quadrivalent 03/01/2016 Influenza Quadravalent, MDCK , 0.5ml, preservative free (Flucelvax) 6mo and older 01/10/2017 Tdap Tetanus diptheria acell ular pertussis (Boostrix; Adacel) 7yo and older 01/23/2017,04/05/2009 Surgical History Surgery Date Site/Laterality Comments SECTION PROCEDURE: HISTORICAL DELIVERY Medical History Medical History Date Comments Hypothyroid DX:Hypothyroid; COMMENT: on levothyroxine 100mcg Family History Medical History Relation Name Comments No Known Problems Brother No Known Problems Daughter Cirrhosis Father alcoholic No Known Problems Maternal Grandfather No Known Problems Maternal Grandmother Thyroid disease Mother thyroid diso rder has resolved, was on medication but it went away Other: none Other No Known Problems Paternal Grandmother No Known Problems Sister No Known Problems Son 1 No Known Problems Son 2 Breast cancer Neg Hx Cervical cancer Neg Hx Colon cancer Neg Hx Ovarian cancer Neg Hx Prostate cancer Neg Hx Uterine cancer Neg Hx Relation Name Status Comments Brother Alive Daughter Alive Father Maternal Grandfather Alive Maternal Grandmother Alive Mother Alive hearing problem s, brain tumor Other Paternal Grandfather history unknown Paternal Grandmother Alive Sister Alive Son 1 Alive asthma Son 2 Alive Social History Tobacco Use Types Packs/Day Years Used Date Smoking Tobacco: Former Smokeless Tobacco: Never Tobacco Cessation:Counseling Given: Not Answered Alcohol Use Standard Drinks/Week Comments No 0 [...] care for your loved ones. For example, manager child or elderly care for an older adult? [...] on file Sexual Orientation Not on file Obstetrics History Last Filed Vital Signs Vital Sign Reading Time Taken Comments Blood Pressure 115/67 10/31/2024 2:35 PM EDT Pulse 70 10/31/2024 2:35 PM EDT Temperature 36.7 C (98.1 F) 10/31/2024 2:35 PM EDT Respiratory Rate 18 10/31/2024 2:35 PM EDT Oxygen Saturation 98% 10/31/2024 2:35 PM EDT Inhaled Oxygen Concentration - - Weight 72.6 kg (160 lb) 10/31/2024 12:22 PM EDT Height 160 cm (5' 3 ) 10/31/2024 12:22 PM EDT Body Mass Index 28.34 10/31/2024 12:22 PM EDT Plan of Treatment Upcoming Encounters Date Type Department Care Team (Late st Contact Info) Description 05/12/2025 1:30 PM EST Office Visit Adult Medicine [facility] [address] [place] [phone] Annmarie Napier PA [address] [place], [place] Health Maintenance Due Date Last Done Comments HPV Vaccines (2 - 3-dose SCD M series) 03/29/2016 03/01/2016 Hepatitis B Vaccines (2 of 3 - 19+ 3-dose series) 03/29/2016 03/01/2016 COVID-19 Vaccine (3 - 2024-2 6 season) 2024 05/26/2020, 05/05/2020 Influenza Vaccine (#1) 2024 7, 04/05/2009 Social Influencers of Health Screening 08/15/2025 08/15/2024 DTaP,Tdap,and Td Vaccines (3 - Td or Tdap) 01/23/2027 01/23/2017, 04/05/2009 Cholesterol Screening (Lipid Panel) 08/25/2027 08/24/2022 Cervical Cancer Screening: HPV 09/20/2027 09/19/2022 RSV Immunization Adult Patients (1 - 1-dose 75+ series) 02/14/2060 MMR Vaccines Aged Out 03/01/2016 No longer eligi ble based on patient's age to complete this topic HIV Screening Completed 09/18/2016 Hepatitis C Screening Completed 09/19/2022 Depression Screening Completed 08/15/2024, 08/29/2023 HIB Vaccines Aged Out No longer eligi ble based on patient's age to complete this topic Hepatitis A Vaccines Aged Out No long er eligible based on patient's age to complete this topic IPV Vaccines Aged Out No longer eligi ble based on patient's age to complete this topic Meningococcal ACWY Vaccine Aged Out N o longer eligible based on patient's age to complete this topic Meningococcal B Vaccine Aged Out No l onger eligible based on patient's age to complete this topic Pneumococcal Vaccine: Pediatrics (0 to 5 Years) and At-Risk Patients (6 to 49 Years) Aged Out No longer eligible b ased on patient's age to complete this topic RSV Immunization Patients Under 20 months Aged Out No longer eligible b ased on patient's age to complete this topic Varicella Vaccines Aged Out No longer eligible based on patient's age to complete this topic Procedures Procedure Name Priority Date/Time Associated Diagnosis Comments TRIIODOTHYRONINE FREE Routine 02/04/2025 11:28 AM EDT Hypothyroidism, unspecified type FREE THYROXINE WITH REFLEX TO FREE TRIIODOTHYRONINE Routine 02/04/2025 11:28 AM EDT Hypothyroidism, unspecified type THYROID STIMULATING HORMONE WITH REFLEX TO FREE T4 AND FREE T3 Routine 02/04/2025 11:28 AM EDT Hypothyroidism, unspecified type DEPRESSION SCREENING Routine 08/29/2023 HPV Routine 09/19/2022 HEPATITIS C SCREENING Routine 09/19/2022 LIPID PANEL Routine 08/24/2022 HIV SCREENING Routine 09/18/2016 from Last 3 Months or Most Recently Relevant to Health Maintenance Results * (ABNORMAL) Thyroid stimulating hormone with reflex to free t4 and free t3 (02/04/2025 11:28 AM EDT) TSH 7.04(H) 0.40 - 4.00 mcIU/mL LAB CHEMISTRY METHOD 02/04/2025 2:25 PM EDT [facility] Blood Venous blood specimen / Unknown Venipuncture / Unknown 02/04/2025 11:28 AM EDT 02/04/2025 11:28 AM EDT us Pk Davis MD LAB BLOOD ORDERABLES F inal Result Performing Organization Address City/[facility]/ZIP Co de Phone Number [facility] [address] [place] [address], [place] [phone] * Free thyroxine with reflex to free triiodothyronine (02/04/2025 11:28 AM EDT) Free T4 0.82 0.70 - 1.80 ng/dL LAB CHEMISTRY METHOD 02/04/2025 2:49 PM EDT [facility] Blood Venous blood specimen / Unknown Venipuncture / Unknown 02/04/2025 11:28 AM EDT 02/04/2025 11:28 AM EDT us Pk Davis MD LAB BLOOD ORDERABLES F inal Result [facility] [address] [place] [address], [place] [phone] * Triiodothyronine free (02/04/2025 11:28 AM EDT) T3, Free 238 230 - 420 pcg/dL LAB CHEMISTRY METHOD 02/04/2025 4:17 PM EDT [facility] Blood Venous blood specimen / Unknown Venipuncture / Unknown 02/04/2025 11:28 AM EDT 02/04/2025 11:28 AM EDT Pk Davis MD LAB BLOOD ORDERABLES F inal Result [facility] [address] [place] [address], [place] [phone] * Depression Screening (08/29/2023) [facility] Depression Screening abstracted Historical Provider HEALTH MAINTENANCE Final Result * Cervical Cancer Screening: HPV (09/19/2022) [facility] Cervical Cancer Screening: HPV abstracted, negative Historical Provider HEALTH MAINTENANCE Final Result * Hepatitis C Screening (09/19/2022) [facility] Hepatitis C Screening abstracted Historical Provider HEALTH MAINTENANCE Final Result * Lipid panel (08/24/2022) [facility] LDL/HDL Ratio 3 0 - 4 Triglycerides 62 0 - 150 mg/dL Cholesterol 161 0 - 200 mg/dL HDL 49 >=40 mg/dL LDL Cholesterol 100 0 - 100 mg/dL Blood Venous blood specimen / Unknown Result [facility] Historical Provider LAB BLOOD ORDERABLES Sandra l Result * HIV Screening (09/18/2016) [facility] HIV Screening abstracted Historical Provider HEALTH MAINTENANCE Final Result from Last 3 Months or Most Recently Relevant to Health Maintenance Insurance [place] [address] Care Teams Stringer Up Soldering Machine Relationship Specialty Start Date End Date Pk Davis MD [address] [facility] [address] [address] PCP - General 09/13/22
--- OUTSIDE RECORDS SUMMARY | 2025-02-09 09:35 | XMS_ITS ---
Author Name [facility] Organization Unknown Care Team Organization Name Specialty Phone Email Start Date End Da te [facility] ROMULO YECENIA Primary Care 02/14/2022 4
--- OUTSIDE RECORDS SUMMARY | 2025-02-09 09:35 | XMS_ITS | Encounter Summary ---
Author Organization [facility] Address [address] [place] [address] Care Team Providers Care Inspector Final Assembly Conveyor Line Name Role Phone Pk Davis MD Primary Care Provider Reason for Referral * Consultation (Routine) - Pending Review Specialty Diagnoses / Procedures Referred By Desirae lloyd Referred To Contact Endocrinology Diagnoses Hypothyroidism, unspecified type Pk Davis MD [address] [place] [address] Phone: tel: fax: Referral ID Status Reason Start Date Expiration Date Visits Requested Visits Authorized [id number] Pending Review Specialty Services Required 02/05/2026 1 1 Encounter Details Date Type Department Care Team (Late st Contact Info) Description 02/05/2025 Telephone Adult Medicine [address] [phone] Pk Davis MD [address] [place] [address] Social History Tobacco Use Types Packs/Day Years [...] for your loved ones. For example, child development consultant or elderly care for an older adult? [...] on file documented as of this encounter Progress Notes * Emma Fabiola, RN - 02/05/2025 2:18 PM EDT [phone] Called pt. She is aware of Dr. Zarco message regarding her thyroid .She states her sore throat started 2 days ago but sts its not really a sore throat as much as her glands feel swollen and tender ,When she moves her head she can feel it , no fever or chills, no sinus pain pr pressure, no post nasal drip , she does have slight chest congestion and occas. Cough, no sob, no cp, no weakness. She is having increase fatigue but sts that maybe her thyroid , no n/v or diarrhea . She is able to swallow food and fluids without issue appetite is good. I offered apt. In urgent care for evaluation . Pt. States she is unable to make an apt. Today , offered [facility] She states she will monitor her symptoms and if needed will go to a urgent care near her . I advised if at any time she is unable to swallow food or fluids, develop sob,weakness cp, or lightheadedness to be evaluated in the ER. Pt. agrees * Pk Davis MD - 02/05/2025 12:45 PM EDT I called patient to discuss her thyroid results. She has been taking her levothyroxine appropriately and compliantly. TSH now within goal. Increase dose to 1 full microgram. Repeat labs in 8 weeks. She then mentioned that she is not feeling herself, feels fatigued, fullness in the throat. Also feltshe is having a sore throat. Advised that I will have the triage team reach out to her regarding the sore throat symptoms but the other symptoms might be due to suboptimally controlled hypothyroidism. She preferred to see endocrinology for her hypothyroidism which I placed a refer documented in this encounter Plan of Treatment Upcoming Encounters Date Type Department Care Team (Late st Contact Info) Description 05/12/2025 1:30 PM EST Office Visit Adult Medicine [facility] [address] [place], [place] [phone] Annmarie Napier PA [address] [place], [place] Scheduled Referrals Name Type Priority Associated Diagnoses Order Schedule Ambulatory referral to Endocrinology Outpatient Referral Routine Hypothyroidism, unspecified type 1 Occurrences starting 02/05/2025 until 02/05/2026 documented as of this encounter Visit Diagnoses Diagnosis Hypothyroidism, unspecified type- Primary documented in this encounter Additional Health Concerns Assessment Noted Time PHQ-9 Depression Total Score: 0 08/16/19 25 10:16 AM EDT documented as of this encounter Care Teams Inspector Final Assembly Conveyor Line Relationship Specialty Start Date End Date Pk Davis MD [address] [place] [address] PCP - General 09/13/22 documented as of this encounter
--- OUTSIDE RECORDS SUMMARY | 2025-02-09 09:35 | XMS_ITS | Encounter Summary ---
Author Organization [facility] Address [address] [place] [address] Care Team Providers Care Cigarette Tester Name Role Phone Pk Davis MD Primary Care Provider Encounter Details Date Type Department Care Team ([facility] st Contact Info) Description 02/05/2025 Results Follow-Up Adult Medicine [facility] [address] [place], [place] [phone] Pk Davis MD [address] [place], [place] Social History Tobacco Use Types Packs/Day Years [...] care for your loved ones. For example, exceptional children teacher assistant or elderly care for an older adult? [...] on file documented as of this encounter Ordered Prescriptions Prescription Sig Dispense Quantity Refills Last Filled Start Date End Date levothyroxine (Synthroid) 112 mcg tablet Take 1 tablet (112 mcg total) by mouth 1 (one) time each day before breakfast. 90 each 1 02/05/2025 documented in this encounter Plan of Treatment Upcoming Encounters Date Type Department Care Team (Late st Contact Info) Description 05/12/2025 1:30 PM EST Office Visit Adult Medicine [address] [phone] Annmarie Napier PA [address] [place], [place] Scheduled Orders Name Type Priority Associated Diagnoses Orde r Schedule Thyroid stimulating hormone with reflex to free t4 and free t3 Lab Routine Hypothyroidism, unspecified type 1 Occurrences starting 02/05/2025 until 02/05/2026 documented as of this encounter Visit Diagnoses Diagnosis Hypothyroidism, unspecified type- Primary documented in this encounter Discontinued Medications Medication Sig Discontinue Reason Start Date End Da te levothyroxine (SYNTHROID, LEVOTHROID) 100 mcg tablet Take 1 tablet (100 mcg total) by mouth 1 (one) time each day. 05/09/2024 02/05/2025 documented as of this encounter Additional Health Concerns Assessment Noted Time PHQ-9 Depression Total Score: 0 08/16/19 25 10:16 AM EDT documented as of this encounter Care Teams Cigarette Tester Relationship Specialty Start Date End Date Pk Davis MD [address] [place] [address] PCP - General 09/13/22 documented as of this encounter
== END 2025-02-09 08:56 | disposition home or self-care (01) ==
LOC: HO.HMGCX 08:55
PROVIDERS: PCP Internal Medicine; Visit Provider Surgery
DX: K80.20 Calculus of gallbladder without cholecystitis without obstruction (principal)
CPT/HCPCS: 76705

== ENCOUNTER → 2025-02-09 08:58 | Outpatient (BNV) | payer OTHER, SELFPAY | PROVIDERS: PCP Internal Medicine; Visit Provider Radiology Diagnostic Radiology | DX: K80.20 Calculus of gallbladder without cholecystitis without obstruction (principal) | CPT/HCPCS: 76705 ==

== ENCOUNTER 2025-03-18 09:29 | Outpatient (AMB) | payer OTHER, SELFPAY ==
--- NOTE | 2025-03-18 09:36 | A.OFFVIS_ITS ---
Intake Visit Reasons: s/p 02/09/25 US results Intake Note: Patient presents to discuss Ultrasound results. Pt c/o; no complaints. Behavioral Services Tech Required: No Accompanied by: Self / Same As Patient Allergies hydrocodone (From Vicodin) Adverse Reaction (Intermediate, Verified 03/18/25 09:39) Vomiting sertraline (From Zoloft) Adverse Reaction (Intermediate, Verified 03/18/25 09:39) Vomiting Medication List - Last Reconciled 03/18/25 by Jose Antonio Borrero MD levothyroxine 100 mcg PO DAILY HPI HPI s/p 02/09/25 US results: Details: [age] year old female here for follow-up for gallstones. She is well known to me as she has a diagnosis of gallstones from before. I had seen her last year and she did not want to proceed with cholecystectomy as she says that she has had no symptoms She apparently had been sent for repeat ultrasound last month and this showed gallstones so she was sent back to me Again she stated that she does not have any abdominal pain. She denies any problems with the right upper quadrant. She has good oral intake. PFSH Medical History Cyclical vomiting Hypothyroidism Surgical History H/O section Social History Alcohol intake: never Patient Tobacco Use Status: Never used Tobacco Review of Systems Const Denies chills and Denies fever(s) Card Denies chest pain, Denies dyspnea and Denies dyspnea on exertion Resp Denies cough, Denies dyspnea and Denies dyspnea on exertion GI Denies hematochezia and Denies change in bowel habits Denies hematuria Musc Denies back pain and Denies limited range of motion Neuro Denies focal weakness and Denies convulsions Psych Denies depression and Denies mood swings Physical Exam Const General: comfortable and no acute distress Orientation/consciousness: patient oriented x3 Neck Neck: Yes no lymphadenopathy Resp Auscultation: clear to auscultation bilaterally Cardio Rhythm: regular rhythm GI Palpation (GI): Soft to palpation, nontender and no guarding Neuro General: patient oriented x3 Assessment & Plan Assessment & Plan (1) Gallstones: Code(s): K80.20 - Calculus of gallbladder without cholecystitis without obstruction Category: Medical Plan: She has known gallstones. She had a follow up ultrasound as ordered by her primary care physician last month and this shows gallstones. Again, I had a long discussion with her about the option of laparoscopic cholecystectomy. I explained the technique of this procedure. I reviewed the risks including but not limited to bleeding, infections, injury to other organs, the need for open cholecystectomy, bile leak, retained stones, as well as the benefits and alternatives She says that she feel that she does not have any symptoms and she would like to hold off on any surgical intervention. She understands the risk of acute cholecystitis She says she will just see me again time next year to review the option. Coding Level of Care Code Est Pt Level 3 (67351) Diagnoses Gallstones K80.20
== END 2025-03-18 09:57 | disposition home or self-care (01) ==
PROVIDERS: PCP Internal Medicine; Visit Provider Surgery
DX: K80.20 Calculus of gallbladder without cholecystitis without obstruction (principal)
CPT/HCPCS: 99213

== ENCOUNTER → 2025-03-18 09:29 | Outpatient (BNVA) | payer OTHER, SELFPAY | PROVIDERS: PCP Internal Medicine; Visit Provider Surgery | DX: K80.20 Calculus of gallbladder without cholecystitis without obstruction (principal) | CPT/HCPCS: 99212 ==